=== PATIENT | male | born 1935 | race Hispanic/Latino ===

== ENCOUNTER 2018-03-08 11:26 | Emergency (ER) | payer MEDICARE ==
[~2018-03-08 11:26] MED LIST: BENA1TAB18 PO; BIMA12.5OS OD; BRIM5DRO OP; FINA5TAB41 PO; LEVO50TA4 PO; METF-446 PO; PRAV40TA3 PO; TAMS-1 PO
[2018-03-08 12:13] LABS: BASOPHILS % (AUTO) 1.4 % (0.0-5.0); HEMATOCRIT 40.2 % (42-54); MEAN CORPUSCULAR HEMOGLOBIN 27.1 pg (27.0-33.0); MEAN CORPUSCULAR HGB CONC 33.1 g/dL (32.0-36.0); MONOCYTES % (AUTO) 5.2 % (3.0-13.0); NEUTROPHILS % (AUTO) 75.4 % (40.0-77.0); PLATELET COUNT (AUTO) 264 K/uL (130-400); RED BLOOD CELL COUNT(AUTO) 4.91 MIL/uL (4.50-6.20); RED CELL DISTRIBUTION WIDTH 15.1 % (11.0-15.5); WHITE BLOOD COUNT (AUTO) 8.4 K/uL (4.8-10.8)
[2018-03-08] MEDS ORDERED: MECLIZINE HCL 25 MG TABLET ONE (12:23)
[2018-03-08 12:32] LABS: CREATININE 1.2 mg/dL (0.5-1.5); POTASSIUM 3.7 mmol/L (3.5-5.1)
[2018-03-08] MEDS ORDERED: SODIUM CHLORIDE 0.9% 500ML 500 ML IV ONE (12:35)
[2018-03-08] MEDS ORDERED: ONDANSETRON HCL 4 MG/2 ML VIAL ONE (12:35)
[2018-03-08 12:36] LABS: INR 0.95 (0.85-1.15); PARTIAL THROMBOPLASTIN TIME 26.1 SEC (26.3-35.5)
[2018-03-08 12:42] LABS: B-TYPE NATRIURETIC PEPTIDE 64 pg/mL (0-100)
[2018-03-08 12:45] LABS: ALBUMIN 3.6 g/dL (3.5-5.0); BILIRUBIN,TOTAL 0.3 mg/dL (0.2-1.0); TOTAL PROTEIN, SERUM 7.1 g/dL (6.0-8.3)
== END 2018-03-08 15:25 | disposition home or self-care (01) ==
LOC: EDH 11:26
DX: H81.399 Other peripheral vertigo, unspecified ear (principal); I10 Essential (primary) hypertension; E11.9 Type 2 diabetes mellitus without complications; E78.5 Hyperlipidemia, unspecified; Z87.891 Personal history of nicotine dependence
CPT/HCPCS: 36415; 70450; 71045; 80053; 82550; 83874; 83880; 84484; 85025; 85610; 85730; 93005; 96361; 96374; 99284; J2405; J7040

== ENCOUNTER → 2018-04-06 | Outpatient (CLI) | payer MEDICARE | END | disposition home or self-care (01) | LOC: RAH 07:35 | PROVIDERS: ATTEND Family Medicine | DX: G31.9 Degenerative disease of nervous system, unspecified (principal) | CPT/HCPCS: 70551 ==

== ENCOUNTER → 2018-12-27 | Outpatient (CLI) | payer MEDICARE | END | disposition home or self-care (01) | LOC: RAH 13:52 | PROVIDERS: ATTEND Family Medicine | DX: M48.061 Spinal stenosis, lumbar region without neurogenic claudication (principal); M54.16 Radiculopathy, lumbar region | CPT/HCPCS: 72148 ==

== ENCOUNTER 2019-11-29 08:40 | Day surgery (SDC) | payer MEDICARE ==
[~2019-11-29] VITALS: Ht 170.2 cm; Wt 63.5 kg
[~2019-11-29 08:40] MED LIST changes: +SODIUM CHLORIDE 0.9% 1000ML 1,000 ML IV ONE
[2019-11-29 09:56] VITALS: BP 135/61
[2019-11-29] MEDS ORDERED: ATOR40TA71 PO (10:42)
[2019-11-29] MEDS ORDERED: SULF1TAB89 PO (10:44)
[2019-11-29] MEDS ORDERED: TIMO5DRO43 OU (10:46)
[2019-11-29] MEDS ORDERED: PROPOFOL 10 MG/ML 20ML VIAL IV ONE (10:46)
[2019-11-29 11:12] VITALS: BP 98/62
[2019-11-29 11:17] VITALS: BP 112/70
[2019-11-29 11:22] VITALS: BP 119/78
[2019-11-29 11:27] VITALS: BP 123/79
== END 2019-11-29 12:10 | disposition home or self-care (01) ==
LOC: DAH 08:40 → ENDO 08:40
PROVIDERS: ATTEND Internal Medicine Gastroenterology
DX: R19.4 Change in bowel habit (principal); K29.70 Gastritis, unspecified, without bleeding; B96.81 Helicobacter pylori [H. pylori] as the cause of diseases classified elsewhere; D12.3 Benign neoplasm of transverse colon; D12.4 Benign neoplasm of descending colon; K52.9 Noninfective gastroenteritis and colitis, unspecified; K20.90 Esophagitis, unspecified without bleeding; K44.9 Diaphragmatic hernia without obstruction or gangrene; K31.89 Other diseases of stomach and duodenum; D50.9 Iron deficiency anemia, unspecified; I10 Essential (primary) hypertension; E78.5 Hyperlipidemia, unspecified; E11.9 Type 2 diabetes mellitus without complications; E78.00 Pure hypercholesterolemia, unspecified; E03.9 Hypothyroidism, unspecified; M19.90 Unspecified osteoarthritis, unspecified site; Z79.84 Long term (current) use of oral hypoglycemic drugs; Z79.899 Other long term (current) drug therapy; Z20.828 Contact with and (suspected) exposure to other viral communicable diseases
CPT/HCPCS: 43239; 45380; 82948 ×2; 88305; 88342; A4215; A4221; A4222; A4223; A4606; A4620; A4657 ×2; A4663; C9803; J2704; J7030; U0003